=== PATIENT | female | born 1995 | race Caucasian/White ===

== ENCOUNTER → 2017-03-11 | Outpatient (CLI) | payer BC ==
[2017-03-11 18:20] LABS: URINE APPEARANCE TURBID (CLEAR); URINE BILIRUBIN NEG (NEG); URINE COLOR YELLOW; URINE EPITHELIAL CELL AUTO >30 /lpf (0-5); URINE NITRITE POS (NEG); URINE SPECIFIC GRAVITY 1.031 (1.000-1.030); UROBILINOGEN NEG (NEG)
[2017-03-11 18:21] LABS: MANUAL MICROSCOPIC REQUIRED? NO; REVIEW REQ? YES
[2017-03-15 01:31] LABS: CHLAMYDIA TRACH RNA*** NOT DETECTED (NOT DETECTED); GC (NEIS GONORRHOEAE)RNA** NOT DETECTED (NOT DETECTED)
== END | disposition home or self-care (01) ==
LOC: C.LABSPEC 08:38
PROVIDERS: ATTEND Physician Assistant
DX: N94.10 Unspecified dyspareunia (principal)

== ENCOUNTER 2017-05-20 19:27 | Emergency (ER) | payer BC ==
[2017-05-20 19:35] VITALS: TEMP 36.3
--- NOTE | 2017-05-20 19:52 | EMERGENCY ROOM VISIT NOTE ---
History Report prepared by Bcibe: Monica Miller Under the Supervision of: Dr. Piter Flowers M.D. First contact with patient: 19:37 Chief Complaint: BACK PAIN Stated Complaint: L SIDE PAIN, BACK PAIN History of Present Illness The patient is a 21 year old female who presents to the Emergency Room with complaints of intermittent left sided back pain beginning a couple months ago. The patient notes that the pain worsens when she sits up straight. She states that her pain has been constant and worsening this week. She rates her pain as a 7/10 and describes it as a pressure. 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 She denies any recent trauma. The patient notes a bladder infection 3 weeks ago and states that her urination has been more frequent since. She denies any diarrhea, vomiting, or fever. The patient had an episode of nausea and dizziness two days ago. Source of History: patient Onset: a couple months ago Position: back Symptom Intensity: 7/10 Quality: pressure Timing: intermittent Modifying Factors (Worsening): other (sitting up) Associated Symptoms: + nausea, + urinary symptoms, No fevers, No vomiting, No diarrhea Review of Systems See HPI for pertinent positives & negatives. A total of 10 systems reviewed and were otherwise negative. Past Medical & Surgical Medical Problems: (1) Bladder infection Family History No pertinent family history stated. Social History Marital Status: in relationship Occupation Status: employed Current/Historical Medications Scheduled Lisdexamfetamine Dimesylate (Vyvanse), 50 MG PO DAILY Nitrofurantoin Macrocrystal (Nitrofurantoin), 1 CAP PO Q12 Allergies Coded Allergies: No Known Allergies (Unverified , 05/20/17) Physical Exam Vital Signs Date Time Temp Pulse Resp B/P (MAP) Pulse Ox O2 Delivery O2 Flow Rate FiO2 05/20/17 21:25 88 18 103/58 100 05/20/17 19:35 36.3 120 18 139/80 100 Room Air Physical Exam GENERAL: Patient is in no acute distress. HEENT: No acute trauma, normocephalic atraumatic, mucous membranes moist, no nasal congestion, no scleral icterus. NECK: No stridor, no adenopathy, no meningismus, trachea is midline. LUNGS: Clear to auscultation bilaterally, no wheeze, no rhonchi, breath sounds equal. HEART: Without murmurs gallops or rubs, regular rate and rhythm. ABDOMEN: Soft, nontender, bowel sounds positive, no hernias, no peritonitis. BACK: Mild left flank discomfort with percussion EXTREMITIES: No cyanosis or edema, full range of motion of all the joints without pain or difficulty, no signs for acute trauma. NEUROLOGIC: Oriented x 3, no acute motor or sensory deficits, no focal weakness. SKIN: No rash, no jaundice, no diaphoresis. Medical Decision & Procedures ER Provider Diagnostic Interpretation: Radiology results as stated below per my review and radiologist interpretation: ABD/PELVIS WITHOUT FOR STONE FINDINGS: Limited study as the patient has a virtual absence of intraperitoneal fat as well as no oral contrast. Lung bases are clear. Liver is uniform. Stomach is distended and debris filled. The kidneys negative for calcification or hydronephrosis. Bowel pattern is difficult to evaluate. Fluid-filled loops of bowel are present suggesting a nonspecific enteritis. 2.5 cm left ovarian cyst. Uterus is anteflexed. Osseous structures are intact. The appendix is not well seen although a significant pericecal inflammatory process is not present. IMPRESSION: 1. Nonspecific enteritis. 2. Distended stomach with considerable gastric content/debris. 3. 2.5 cm left ovarian cyst. The above report was generated using voice recognition software. It may contain grammatical, syntax or spelling errors. Electronically signed by: Michoacano Anand M.D. Laboratory Results 05/20/17 19:50 Red Blood Count 4.77, Mean Corpuscular Volume 85.3, Mean Corpuscular Hemoglobin 29.8, Mean Corpuscular Hemoglobin Concent 34.9, Mean Platelet Volume 10.5, Neutrophils (%) (Auto) 53.7, Lymphocytes (%) (Auto) 35.0, Monocytes (%) (Auto) 8.8, Eosinophils (%) (Auto) 1.9, Basophils (%) (Auto) 0.3, Neutrophils # (Auto) 4.87, Lymphocytes # (Auto) 3.17, Monocytes # (Auto) 0.80, Eosinophils # (Auto) 0.17, Basophils # (Auto) 0.03 05/20/17 19:50 Test 05/20/17 19:50 05/20/17 20:50 White Blood Count 9.07 K/uL (4.8-10.8) Red Blood Count 4.77 M/uL (4.2-5.4) Hemoglobin 14.2 g/dL (12.0-16.0) Hematocrit 40.7 % (37-47) Mean Corpuscular Volume 85.3 fL (80-100) Mean Corpuscular Hemoglobin 29.8 pg (25-34) Mean Corpuscular Hemoglobin Concent 34.9 g/dl (32-36) Platelet Count 284 K/uL (130-400) Mean Platelet Volume 10.5 fL (7.4-10.4) Neutrophils (%) (Auto) 53.7 % Lymphocytes (%) (Auto) 35.0 % Monocytes (%) (Auto) 8.8 % Eosinophils (%) (Auto) 1.9 % Basophils (%) (Auto) 0.3 % Neutrophils # (Auto) 4.87 K/uL (1.4-6.5) Lymphocytes # (Auto) 3.17 K/uL (1.2-3.4) Monocytes # (Auto) 0.80 K/uL (0.11-0.59) Eosinophils # (Auto) 0.17 K/uL (0-0.5) Basophils # (Auto) 0.03 K/uL (0-0.2) RDW Standard Deviation 38.4 fL (36.4-46.3) RDW Coefficient of Variation 12.3 % (11.5-14.5) Immature Granulocyte % (Auto) 0.3 % Immature Granulocyte # (Auto) 0.03 K/uL (0.00-0.02) Anion Gap 9.0 mmol/L (3-11) Estimated GFR () 118.6 Estimated GFR (Non- 102.3 BUN/Creatinine Ratio 18.3 (10-20) Calcium Level 9.0 mg/dl (8.5-10.1) Lipase 171 U/L (73-393) Human Chorionic Gonadotropin, Qual NEG (NEG) Urine Color YELLOW Urine Appearance CLEAR (CLEAR) Urine pH 5.5 (4.5-7.5) Urine Specific [place] 1.023 (1.000-1.030) Urine Protein 2+ (NEG) Urine Glucose (UA) NEG (NEG) Urine Ketones NEG (NEG) Urine Occult Blood NEG (NEG) Urine Nitrite NEG (NEG) Urine Bilirubin NEG (NEG) Urine Urobilinogen NEG (NEG) Urine Leukocyte Esterase NEG (NEG) Urine WBC (Auto) 1-5 /hpf (0-5) Urine RBC (Auto) 0-4 /hpf (0-4) Urine Hyaline Casts (Auto) 5-10 /lpf (0-5) Urine Epithelial Cells (Auto) >30 /lpf (0-5) Urine Bacteria (Auto) NEG (NEG) Laboratory results reviewed by me. Medications Administered Medications (Trade) Dose Ordered Sig/Lilo Route Start Time Stop Time Status Last Admin Dose Admin Ketorolac Tromethamine (Toradol Inj) 30 mg NOW STAT IV 05/20/17 20:36 05/20/17 20:37 DC 05/20/17 20:43 30 MG ED Course 1937: The patient was evaluated in room C8. A complete history and physical exam was performed. 2035: Toradol Inj 30 mg IV. 2111: Reevaluated the patient. Discussed results and discharge instructions: She verbalized understanding and agreement. The patient is ready for discharge. Medical Decision Differential diagnoses include: UTI, pyelonephritis, renal colic, renal failure , , musculoskeletal, splenic injury. There is no leukocytosis or concerning anemia. No significant electrolyte abnormality or kidney failure. The patient is not by our testing. Urinalysis does not show significant hematuria or evidence for infection. Abdominal and pelvis CT shows a left ovarian cyst, no evidence for splenic injury or for hydronephrosis. No bowel obstruction. On exam, the patient was not toxic or febrile. Patient received IV Toradol for pain. She has been resting fairly comfortably. The patient's pain may be somewhat musculoskeletal but I suspect a large part of the discomfort is from the left ovarian cyst. She has been advised to follow with OB, Motrin for pain, Tylenol for additional pain. She can return here for fever, vomiting or uncontrolled symptoms. She was reassured and is being discharged home. Medication Reconcilliation Current Medication List: was personally reviewed by me Blood Pressure Screening Patient's blood pressure: Elevated blood pressure Blood pressure disposition: Elevated BP felt to be situational Impression Primary Impression: Left flank pain Additional Impression: Left ovarian cyst Scribe Attestation The scribe's documentation has been prepared under my direction and personally reviewed by me in its entirety. I confirm that the note above accurately reflects all work, treatment, procedures, and medical decision making performed by me. Departure Information Dispostion Home / Self-Care Referrals Laurent Gustafson M.D. 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
[2017-05-20 20:01] LABS: BASO % 0.3 %; BASO ABS # 0.03 K/uL (0-0.2); COMPLETE YES; EOS % 1.9 %; HEMATOCRIT 40.7 % (37-47); IG% 0.3 %; LYMPH ABS # 3.17 K/uL (1.2-3.4); MEAN CELL VOLUME 85.3 fL (80-100); MEAN CORPUSCULAR HEMOGLOBIN 29.8 pg (25-34); MEAN CORPUSCULAR HGB CONC 34.9 g/dl (32-36); MEAN PLATELET VOLUME 10.5 fL (7.4-10.4); MONO % 8.8 %; NEUT % 53.7 %; PLATELET COUNT 284 K/uL (130-400); RED BLOOD COUNT 4.77 M/uL (4.2-5.4); WHITE BLOOD COUNT 9.07 K/uL (4.8-10.8)
[2017-05-20 20:18] LABS: BLOOD UREA NITROGEN 15 mg/dl (7-18); BUN/CREATININE RATIO 18.3 (10-20); CARBON DIOXIDE 26 mmol/L (21-32); CHLORIDE 105 mmol/L (98-107); CREATININE 0.82 mg/dl (0.60-1.20); GLUCOSE 68 mg/dl (70-99); POTASSIUM 3.4 mmol/L (3.5-5.1); SODIUM 140 mmol/L (136-145)
--- NOTE | 2017-05-20 20:20 | DIAGNOSTIC IMAGING REPORT ---
ABD/PELVIS WITHOUT FOR STONE CT DOSE: 399.75 mGy.cm HISTORY: Pain EVALUATE FLANK PAIN/HEMATURIA TECHNIQUE: Multiaxial CT images of the abdomen and pelvis were performed without the use of intravenous and oral contrast according to the standard department stone protocol. A dose lowering technique was utilized adhering to the principles of ALARA. COMPARISON STUDY: None. FINDINGS: Limited study as the patient has a virtual absence of intraperitoneal fat as well as no oral contrast. Lung bases are clear. Liver is uniform. Stomach is distended and debris filled. The kidneys negative for calcification or hydronephrosis. Bowel pattern is difficult to evaluate. Fluid-filled loops of bowel are present suggesting a nonspecific enteritis. 2.5 cm left ovarian cyst. Uterus is anteflexed. Osseous structures are intact. The appendix is not well seen although a significant pericecal inflammatory process is not present. IMPRESSION: 1. Nonspecific enteritis. 2. Distended stomach with considerable gastric content/debris. 3. 2.5 cm left ovarian cyst. The above report was generated using voice recognition software. It may contain grammatical, syntax or spelling errors. Electronically signed by: Michoacano Anand M.D. 05/20/2017 8:18 PM Dictated Date/Time: 05/20/2017 8:15 PM
[2017-05-20 20:23] LABS: PREG INTERNAL NEGATIVE QC NEG CLEAR BACKGROUND; PREG INTERNAL POSITIVE QC POS CONTROL LINE
[2017-05-20] MEDS ORDERED: KETOROLAC TROMETHAMINE 30 MG/ML VIAL IV STA (20:36)
[2017-05-20] MEDS ORDERED: LISD50CA4 PO (20:48)
[2017-05-20] MEDS ORDERED: NITR100C43 PO (20:58)
[2017-05-20 21:04] LABS: URINE APPEARANCE CLEAR (CLEAR); URINE BILIRUBIN NEG (NEG); URINE COLOR YELLOW; URINE EPITHELIAL CELL AUTO >30 /lpf (0-5); URINE NITRITE NEG (NEG); URINE PH 5.5 (4.5-7.5); URINE SPECIFIC GRAVITY 1.023 (1.000-1.030); UROBILINOGEN NEG (NEG); ZZUR CULT IF INDIC CLEAN CATCH NO
[2017-05-20 21:05] LABS: MANUAL MICROSCOPIC REQUIRED? NO; REVIEW REQ? NO
[2017-05-20 21:25] VITALS: BP 103/58; PULSE 88; O2SAT 100
== END 2017-05-20 21:23 | disposition home or self-care (01) ==
LOC: C.EDB 19:29 → C.EDC 21:23
DX: R10.9 Unspecified abdominal pain (principal); N83.202 Unspecified ovarian cyst, left side